=== PATIENT | female | born 1955 | race Caucasian/White ===

== ENCOUNTER 2019-04-19 09:07 | Emergency (ER) | payer OTHER, SELFPAY ==
[2019-04-19 09:12] VITALS: BP 132/72; PULSE 86; RESP 20; TEMP 36.9; O2SAT 99
--- NOTE | 2019-04-19 09:32 | ED.URI ---
HPI - URI/Sore Throat General Chief Complaint: Upper Respiratory Infection Stated Complaint: BODY ACHES/COUGH/WEAK Time Seen by Provider: 04/19/19 09:25 Source: patient Mode of arrival: ambulatory Limitations: no limitations History of Present Illness HPI Narrative: Patient presents today with a 3-day history of body aches, dry cough, sore throat, chest wall pain with coughing episodes, and rhinorrhea. Denies fever, headache, nausea, vomiting, diarrhea. She has been taking ibuprofen occasionally for her symptoms. She is a non-smoker. Denies history of asthma or COPD. MD elicited complaint: cough and sore throat Related Data Home Medications Medication Instructions Recorded Confirmed Vitamin D2 04/19/19 conjugated estrogens [Premarin] 0.45 mg PO DAILY 04/19/19 04/19/19 doxycycline hyclate 20 mg PO DAILY 04/19/19 04/19/19 Allergies Allergy/AdvReac Type Severity Reaction Status Date / Time No Known Allergies Allergy Verified 04/19/19 09:21 Review of Systems Review of Systems: Narrative: CONSTITUTIONAL: Denies fever, chills, or sweats.+ EYES: Denies visual changes, redness, or discharge. ENT: Denies congestion, , or otalgia.+, Sore throat CARDIOVASCULAR: Denies chest pain, palpitations, or edema. RESPIRATORY: Denies dyspnea.+ Dry cough, chest wall pain GASTROINTESTINAL: Denies abdominal pain, nausea, vomiting, or diarrhea. GENITOURINARY: Denies dysuria or hematuria. SKIN: Denies rash, itching, or wounds. MUSCULOSKELETAL: Denies back pain, joint pain, or myalgia. NEUROLOGIC: Denies headache, numbness, tingling, or weakness. PSYCH: Denies depression or anxiety. PMFSH Social History Social History Smoking status: Never smoker Alcohol intake: never Comments At time of signature, I have reviewed and agree with nursing past medical, surgical, social and family history unless otherwise noted. Please see nursing chart for further information. There is no relevant family history pertinent to the presenting complaint Exam Narrative: Exam Narrative: GENERAL: Mildly ill-appearing, well-nourished, and in no acute distress. HEAD: Normocephalic, atraumatic. EYES: EOMI. No redness or drainage. Conjunctivae normal. ENT: Mucous membranes pink and moist. Nares clear. No rhinorrhea. TMs normal bilaterally. Throat normal. Uvula midline. NECK: Normal AROM. Supple. No lymphadenopathy. CHEST: No respiratory distress. Clear to auscultation. HEART: Regular rate and rhythm. No murmur appreciated. Normal peripheral pulses. EXTREMITIES: Normal range of motion. No edema. SKIN: Warm, dry, no rash. NEURO: No focal deficits. Alert and oriented x3. Gait steady. PSYCH: Normal affect. No signs of depression or anxiety. Course Vital Signs Vital signs: Vital Signs Temperature 98.4 F 04/19/19 09:12 Pulse Rate 86 04/19/19 09:12 Respiratory Rate 20 04/19/19 09:12 Blood Pressure 132/72 04/19/19 09:12 Pulse Oximetry 99 04/19/19 09:12 Temperature 98.4 F 04/19/19 09:12 Pulse Rate 86 04/19/19 09:12 Respiratory Rate 20 04/19/19 09:12 Blood Pressure 132/72 04/19/19 09:12 Pulse Oximetry 99 04/19/19 09:12 Reviewed. Pt has been instructed to follow up with her PCP regarding her elevated blood pressure today. MDM - URI/Sore Throat Differential Diagnosis Differential diagnosis: Likely upper respiratory infection, sinusitis, viral infection, bronchitis, pharyngitis and other (Influenza) Lab Data Attestation: I reviewed the patient's lab results. Labs: Influenza A Screen Negative Reference Range: Negative Influenza B Screen Negative Reference Range: Negative Critical Care Time Critical Care Time Critical Care Time: No Discharge Plan Discharge Clinical Impression: Upper respiratory infection Qualifiers: URI type: unspecified URI Qualified Code(s): J06.9 - Acute upper respiratory infection, unspecified Patient Disposition: Home, Self-Ca
== END 2019-04-19 09:58 | disposition home or self-care (01) ==
PROVIDERS: Emergency Provider Nurse Practitioner; PCP Obstetrics & Gynecology Gynecology
DX: J06.9 Acute upper respiratory infection, unspecified (principal)
CPT/HCPCS: 87804; 99213; G0463

== ENCOUNTER 2019-07-08 10:00 | Outpatient (RCR) | payer OTHER, SELFPAY ==
--- NOTE | 2019-06-08 11:53 | PTOPEVAL ---
PHYSICAL THERAPY EVALUATION AND PLAN OF CARE Thank you for referring Lina Avlarez to [facility]. Lina will participate in physical therapy 2x/week for 4 weeks. Please review, sign, date and return this plan of care ANDRES. I agree with and certify that the following plan of care is medically necessary. Referring Physician Date Attending Provider: David Quinonez MD Evaluation Diagnosis low back pain Onset 1month ago Cause gradual onset; insidious Subjective Information Lina is here today with c/o Query Text:As Reported By Patient/ low back pain that is acute Family on chronic. Her previous back pain was so long ago and she has a difficult time recalling how she managed the pain before. Possibly with medication and stretching. Reports that her back is aggravated by bending over, lifting, carrying. Rest and sitting helps to relax the low back region. 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 Prior Level of Function Activity Level (Last 3 Months) Occupation housekeeping at hospital Hand Dominance Right Right Spine, Lumbar Reported Pain Level 5 Pain Description Aching Pain Frequency Acute,Intermittent Lowest Pain Intensity 3 Greatest Pain Intensity 7 Pain Aggravating Factors Bending,Lifting,Stair Climbing Pain Behaviors None Pain Relief Interventions Used By Medication Patient Interventions Used By Clinicians Exercise,Joint Mobilization Pain Score Pain Score 5: Self Report Cervical and Lumbar ROM Lumbar ROM Lumbar Flexion (0-90) 30 Query Text:Active in Degrees Lumbar Flexion Active Ankle Query Text:Hands to: Lumbar Extension (0-40) 10 Query Text:Active in Degrees Lateral Rotation Right (0-45) 20 Query Text:Active in Degrees Lateral Rotation Left (0-45) 15 Query Text:Active in Degrees Lumbar Comments abberent movement and markie's sign during lumbar flexion Cervical and Lumbar Musc
--- NOTE | 2019-07-08 10:28 | PTOPEVAL ---
PHYSICAL THERAPY DISCHARGE NOTE Thank you for referring Lina Alvarez to [facility]. Lina is independent in [facility]. I recommend discharge based on findings below. Please review, sign, date and return this plan of care ANDRES. I agree with and certify that the following plan of care is medically necessary. Referring Physician Date Attending Provider: David Quinonez MD Discharge Problem Diagnosis low back pain Subjective Information Lina reports today that Query Text:As Reported By Patient/ overall she is much improved Family in pain symptoms. There are some days that she has more discomfort. Self Report Pain Assessment Right Spine, Lumbar Reported Pain Level 0 Pain Description Aching Interventions Used By Clinicians Exercise Pain Score Pain Score 0: Self Report Lumbar ROM Lumbar Flexion (0-90) 55 Query Text:Active in Degrees Lumbar Flexion Active Floor Query Text:Hands to: Lumbar Extension (0-40) 15 Query Text:Active in Degrees Lateral Rotation Right (0-45) 35 Query Text:Active in Degrees Lateral Rotation Left (0-45) 35 Query Text:Active in Degrees Hip Strength Right Hip Flexion Strength 5 Normal Hip Extension Strength 3+ Fair + Hip Abduction Strength 4 Good Left Hip Flexion Strength 5 Normal Hip Extension Strength 4- Good - Hip Abduction Strength 4 Good Knee Strength Bilateral Knee Flexion Strength 5 Normal Knee Extension Strength 5 Normal PT Clinical Summary Lina has participated in physical therapy for 4 weeks for acute low back pain. She demonstrates today a significant improvement in ROM and strength and flexibility. She reports today that symptoms are manageable. I recommended continuing her exercises at home for another 3-4 weeks and to use the exercises as a tool for if symptoms start to return. I recommend discharge from PT at this time. Patient/Caregiver's Personal Goals for decrease pain Rehabilitation Other Potential Barriers to Goal decreased central processing Achievement Support Requirements For Optimal None [place] Patient/Caregiver Informed of Benefits/ Yes
== END 2019-07-08 11:31 | disposition home or self-care (01) ==
LOC: ANHPT 10:00
PROVIDERS: PCP Obstetrics & Gynecology Gynecology; Visit Provider Orthopaedic Surgery
DX: M54.5 Low back pain (principal); M79.18 Myalgia, other site
CPT/HCPCS: 97110; 97140; 97161

== ENCOUNTER → 2020-02-07 14:44 | Outpatient (CLI) | payer OTHER, SELFPAY ==
--- NOTE | ~2020-02-07 | MM_ITS ---
EXAMINATION: MM screening yumi BI w janessa HISTORY: Screening TECHNIQUE: Craniocaudal and mediolateral oblique 3-D tomosynthesis images were obtained and synthetic 2-D images were generated. CAD analysis was submitted and interpreted. COMPARISON: Comparison to multiple prior studies sequentially, with oldest reviewed study dated 10/2016. BREAST PARENCHYMAL COMPOSITION: The breasts are heterogeneously dense, which may obscure small masses . FINDINGS: There is possible architectural distortion in the upper aspect of the right breast on MLO v iew. The left breast is stable without evidence for malignancy. There are benign bilateral breast arthur cifications. IMPRESSION: 1. Possible architectural distortion upper aspect of the right breast. 2. Additional mammographic views and possible breast ultrasound are recommended. BI-RADS Category 0: Incomplete: Needs additional imaging evaluation. Reviewed, dictated and finalized at location A. CISE INSTRUCTOR IMPRESSION: 1. Possible architectural distortion upper aspect of the right breast. 2. Additional mammographic views and possible breast ultrasound are recommended . BI-RADS Category 0: Incomplete: Needs additional imaging evaluation.
== END ==
PROVIDERS: Visit Provider Obstetrics & Gynecology Gynecology
DX: Z12.31 Encounter for screening mammogram for malignant neoplasm of breast (principal); R92.8 Other abnormal and inconclusive findings on diagnostic imaging of breast
CPT/HCPCS: 77063; 77067

== ENCOUNTER → 2020-03-06 09:33 | Outpatient (CLI) | payer OTHER, SELFPAY ==
--- NOTE | ~2020-03-06 | MMUS_ITS ---
EXAMINATION: MM diagnostic mammo unilat RT, US breast RT limited HISTORY: Follow-up right breast asymmetry/architectural distortion TECHNIQUE: Additional 3-D tomosynthesis images of the right breast were performed and synthetic 2-D i mages were generated. CAD analysis was submitted and interpreted. High resolution right breast ultras ound was performed. COMPARISON: 02/07/2020 BREAST PARENCHYMAL COMPOSITION: The breasts are heterogenously dense, which may obscure small masses FINDINGS: MAMMOGRAPHIC FINDINGS: No discrete mass or architectural distortion is identified. There are no suspicious calcifications. ULTRASOUND: Limited right breast ultrasound: At 11:00, 6 cm from the nipple, there is an oval circumscribed hypoe choic mass measuring 4 mm, likely benign. No internal vascularity or posterior features. IMPRESSION: 1. Probable benign 4 mm right breast mass at 11:00, 6 cm from the nipple. 2. Recommend 6 month follow-up diagnostic right mammogram and ultrasound BI-RADS category 3, probably benign findings. Reviewed, dictated and finalized at location A. DEVELOPER IMPRESSION: 1. Probable benign 4 mm right breast mass at 11:00, 6 cm from the nipple. 2. Recommend 6 month follow-up diagnostic right mammogram and ultrasound BI-RADS category 3, probably benign findings.
== END ==
PROVIDERS: Visit Provider Obstetrics & Gynecology Gynecology
DX: R92.8 Other abnormal and inconclusive findings on diagnostic imaging of breast (principal)
CPT/HCPCS: 76642; 77065

== ENCOUNTER → 2020-09-04 08:42 | Outpatient (CLI) | payer OTHER, SELFPAY ==
--- NOTE | ~2020-09-04 | MMUS_ITS ---
EXAMINATION: MM diagnostic yumi RT w janessa, US breast RT limited HISTORY: Six-month follow-up of probably benign 4 mm right breast mass at 11:00 6 cm from nipple TECHNIQUE: ML, MLO and cc full field and spot 3-D tomosynthesis images of the right breast were perfo rmed and synthetic 2-D images were generated. CAD analysis was submitted and interpreted. High resolu tion upper outer and lower-outer quadrant right breast ultrasound was performed. COMPARISON: 03/06/2020 diagnostic right mammogram and limited right breast ultrasound examination 02/07/2020 bilateral digital screening mammogram BREAST PARENCHYMAL COMPOSITION: The breasts are heterogeneously dense, which may obscure small masses . FINDINGS: MAMMOGRAPHIC FINDINGS: 5 mm mass is suggested anteriorly in the outer mid right breast (craniocaudal Tomosynthesis image 34/ 76). ULTRASOUND: At 11:00 6 cm from the nipple there is an irregular hypoechoic approximately 2.4 x 3.7 mm area with p osterior shadowing and adjacent color flow vascularity. Ultrasound-guided biopsy is recommended. IMPRESSION: 1. Irregular hypoechoic shadowing 3.7 mm lesion at 11:00 6 cm from nipple 2. Ultrasound biopsy of right breast 11:00 lesion is recommended BI-RADS category 4, suspicious findings. Dr. Willett telephoned the report and ultrasound guided biopsy recommendation for the right breast 11:00 lesion on 09/04/[address] Leach's RN Jacquie. Reviewed, dictated and finalized at location A. IMPRESSION: 1. Irregular hypoechoic shadowing 3.7 mm lesion at 11:00 6 cm from nipple 2. Ultrasound biopsy of right breast 11:00 lesion is recommended BI-RADS category 4, suspicious findings. Dr. Willett telephoned the report and ultrasound guided biopsy recommendation for the right breast 11:00 lesion on 09/04/[address] Leach's RN Reza hanna.
== END ==
PROVIDERS: PCP Emergency Medicine; Visit Provider Obstetrics & Gynecology Gynecology
DX: N63.11 Unspecified lump in the right breast, upper outer quadrant (principal)
CPT/HCPCS: 76642; 77061; 77065; G0279

== ENCOUNTER 2020-09-27 09:56 | Outpatient (CLI) | payer OTHER, SELFPAY ==
--- NOTE | ~2020-09-27 | MMUS_ITS ---
EXAMINATION: US breast biopsy RT w image, MM post biopsy invasive RT DATE: 09/27/2020 11:33 (accession [id number]), 09/27/2020 11:29 (accession [id number]) INDICATION: Indeterminate mass in the upper outer quadrant of the right breast. Ultrasound-guided cor e biopsy is requested to evaluate for malignancy. TECHNIQUE AND FINDINGS: The risks and potential benefits of the procedure were discussed with the patient including bleeding, infection, and nondiagnostic specimen. A time out was performed. The skin of the right breast was pr epared and draped in usual sterile fashion. 1% lidocaine was used for superficial anesthesia. 1% lido westley with epinephrine was used for deep anesthesia. A vacuum-assisted biopsy gun needle was advanced through to the outer edge of the region of interest from an inferior approach utilizing sonographic guidance. A total of three tissue core samples were o btained through the lesion. A tissue marker clip was then placed at the biopsy site. Hemostasis was a chieved. A sterile bandage was applied. The patient tolerated procedure well and there was no evidence of immediate complication. The patient was given verbal instructions to return to the Emergency Department in the event of severe breast pa in or rapid breast enlargement. A two view right breast mammogram was obtained to document tissue mar ker clip placement. IMPRESSION: 1. Successful ultrasound-guided vacuum-assisted biopsy of right breast mass with tissue marker placem ent. Reviewed, dictated and finalized at location A. IMPRESSION: 1. Successful ultrasound-guided vacuum-assisted biopsy of right breast mass wit h tissue marker placement.
== END 2020-09-27 09:57 | disposition home or self-care (01) ==
LOC: ANHIMG 10:01
PROVIDERS: PCP Emergency Medicine; Visit Provider Surgery
DX: R92.8 Other abnormal and inconclusive findings on diagnostic imaging of breast (principal)
CPT/HCPCS: 19083; 88305; A4648

== ENCOUNTER → 2021-02-19 09:49 | Outpatient (CLI) | payer OTHER, SELFPAY ==
--- NOTE | ~2021-02-19 | MM_ITS ---
EXAMINATION: MM screening yumi BI w janessa HISTORY: Screening TECHNIQUE: Craniocaudal and mediolateral oblique 3-D tomosynthesis images were obtained and synthetic 2-D images were generated. CAD analysis was submitted and interpreted. COMPARISON: Comparison to multiple prior studies sequentially, with oldest reviewed study dated 10/09. BREAST PARENCHYMAL COMPOSITION: Breast composed of scattered areas of fibroglandular density FINDINGS: There is no evidence of suspicious mass, calcification, or architectural distortion to sugg est malignancy in either breast. There has been no suspicious interval change. IMPRESSION: 1. No mammographic evidence of malignancy. 2. Recommend routine screening mammography in one year. BI-RADS Category 1: Negative Reviewed, dictated and finalized at location A. ANTY CLERK
== END ==
PROVIDERS: Visit Provider Nurse Practitioner
DX: Z12.31 Encounter for screening mammogram for malignant neoplasm of breast (principal)
CPT/HCPCS: 77063; 77067

== ENCOUNTER → 2021-06-15 00:12 | Outpatient (CLI) | payer OTHER, SELFPAY ==
[2021-06-15 11:59] LABS: Influenza A QL RT-PCR Negative (Negative); Influenza B QL RT-PCR Negative (Negative); SARS-CoV-2 RNA PCR Negative
== END ==
PROVIDERS: PCP Emergency Medicine; Visit Provider Emergency Medicine
DX: R05.9 Cough, unspecified (principal); R06.7 Sneezing; R23.2 Flushing; R52 Pain, unspecified; Z20.822 Contact with and (suspected) exposure to COVID-19
CPT/HCPCS: 87502; C9803; U0003; U0005

== ENCOUNTER 2021-06-18 12:03 | Outpatient (CLI) | payer OTHER, SELFPAY ==
--- NOTE | ~2021-06-18 | XR_ITS ---
EXAMINATION: XR chest 2V 06/18/2021 12:27 INDICATION: Shortness of breath PROCEDURE: Two-view chest COMPARISON: 01/19/2008 FINDINGS: The lungs are clear. The cardiomediastinal silhouette is within normal limits. There are no pleural effusions. There is no pneumothorax suspected. IMPRESSION: 1: NO ACUTE CARDIOPULMONARY DISEASE. Reviewed, dictated and finalized at location A.
== END 2021-06-18 12:04 | disposition home or self-care (01) ==
LOC: ANHIMG 12:07
PROVIDERS: PCP Emergency Medicine; Visit Provider Emergency Medicine
DX: R06.02 Shortness of breath (principal)
CPT/HCPCS: 71046

== ENCOUNTER 2022-04-09 08:51 | Outpatient (CLI) | payer OTHER, SELFPAY ==
--- NOTE | ~2022-04-09 | NM_ITS ---
EXAMINATION: NM yvette stress w perfusion DATE: 04/09/2022 11:39 PIPE STRAIGHTENER INDICATION: Fatigue. TECHNIQUE: Rest images were obtained following intravenous administration of 9.8 mCi Tc99m tetrofosmi n (Myoview). The patient was infused intravenously with Lexiscan (regadenoson). Then, 30.1 mCi Tc99m tetrofosmin (Myoview) was administered intravenously, and stress images were obtained. Data was recon structed into short axis and horizontal and vertical long axis SPECT images. Gated SPECT images were also obtained. COMPARISON: None. FINDINGS: There is no definite reversible or fixed perfusion abnormality to suggest ischemia or infar ction. There is no segmental wall motion abnormality. Left ventricular ejection fraction measures 7 6%. IMPRESSION: 1. No definite ischemia or infarct. 2. Normal left ventricular ejection fraction measuring 76%. Reviewed, dictated and finalized at location B. STRAIGHTENER
--- NOTE | 2022-04-09 09:41 | EST_ITS ---
Patient Info Name: Lina Alvarez Age: 66 years : 1955 Gender: Female Ht: 63 in Wt: 160 lbs BSA: 1.82 m2 HR: 58 bpm BP: 179 / 108 mmHg Heart Rhythm: Sinus Rhythm Exam Date: 04/09/2022 10:01 AM Exam Location: [facility] Stress Patient Status: Outpatient Admit Date: 04/09/2022 Staff Ordering Physician: Dawood Kraus MD Attending Provider: Dawood Kraus MD Exercise Technologist: Hortensia Barnard CT Exercise Physician: Emmanuel France DO Exam Type: CA stress yvette w NM Study Info Indications R06.02 - Shortness of breath R53.83 - Other fatigue A regadenoson stress test was performed. Summary 1. 1. Negative lexiscan stress test for ischemic ST changes by ECG criteria. 2. 2. Baseline hypertension. 3. 3. Baseline atrial tachycardia changes to Sinus rhythm prior to stress testing. 4. 4. Nuclear scan to follow and will be reported separately. Please correlate with it. 5. 5. Patient informe of the above results. Protocol: Lexiscan Stress ECG Details Stage: REST Duration (min): 3 min : 52 sec HR (bpm): 86 SBP (mmHg): 201 DBP (mmHg): 117 Stage: REST Duration (min): 9 min : 39 sec HR (bpm): 60 SBP (mmHg): 183 DBP (mmHg): 106 Stage: STAGE 1 Duration (min): 1 min : 0 sec HR (bpm): 87 SBP (mmHg): 183 DBP (mmHg): 106 Stage: RECOVERY Duration (min): 1 min : 0 sec HR (bpm): 83 SBP (mmHg): 174 DBP (mmHg): 89 Stage: RECOVERY Duration (min): 2 min : 0 sec HR (bpm): 79 SBP (mmHg): 174 DBP (mmHg): 89 Stage: RECOVERY Duration (min): 3 min : 0 sec HR (bpm): 74 SBP (mmHg): 157 DBP (mmHg): 97 Stage: RECOVERY Duration (min): 3 min : 32 sec HR (bpm): 69 SBP (mmHg): 157 DBP (mmHg): 97 Rest HR: 60 bpm Peak HR: 88 bpm Rest Sys BP: 183 mmHg Peak Sys BP: 174 mmHg Max Pred HR: 156 bpm % Max Pred HR: 56 % Target HR: 133 bpm Max RPP: 15,312 bpm*mmHg Termination Reason: Completed protocol Cardiac Symptoms: Shortness of breath Total Time: 1 min : 0 sec Rest Ziegler BP: 106 mmHg Peak Ziegler BP: 89 mmHg Total Dose: 0.4 mg Resting ECG Baseline atrial tachycardia changes to sinus rhythm. Stress ECG No ST changes. Arrhythmias None from stress test. Report Signatures
== END 2022-04-09 08:52 | disposition home or self-care (01) ==
LOC: ANHCARD 08:54
PROVIDERS: PCP Emergency Medicine; Visit Provider Emergency Medicine
DX: R07.9 Chest pain, unspecified (principal); R53.83 Other fatigue
CPT/HCPCS: 78452; 93017; A9502; J2785

== ENCOUNTER → 2022-05-07 12:03 | Outpatient (CLI) | payer OTHER, SELFPAY ==
--- NOTE | ~2022-05-07 | DEXA_ITS ---
Bone Density Report Name: ARTI RIDER Age: 66 Sex: Female Ethnicity: White Date of : 1955 Indication: postmenopausal; screening for osteoporosis; height loss; hysterectomy; Referring Provider: ROXANA GEIGER Study: Bone densitometry was performed. Exam Date: May 07, 2022 Accession number: [id number] Bone Density: Region BMD T-score Z-score Classification AP Spine (L1-L4) 0.974 -0.7 1.1 Normal Femoral Neck (Left) 0.748 -0.9 0.6 Normal Total Hip (Left) 0.862 -0.7 0.6 Normal Femoral Neck (Right) 0.806 -0.4 1.1 Normal Total Hip (Right) 0.918 -0.2 1.0 Normal Total Hip Mean 0.890 -0.5 0.8 Normal World Health Organization criteria for BMD impression classify patients as: Normal (T-score at or above -1.0), Osteopenia (T-score between -1.0 and -2.5), or Osteoporosis (T-score at or below -2.5). 10-year Fracture Risk: FRAX not reported because: All T-scores for Spine Total, Hip Total, Femoral Neck at or above -1.0 Previous Exams: Region Exam Age BMD T-score BMD Change BMD Change Date g/cm2 vs Baseline vs Previous AP Spine(L1-L4) 05/07/2022 66 0.974 -0.7 0.012 -0.026* 09/29/2018 63 1.000 -0.4 0.038* 0.025* 09/17/2016 61 0.975 -0.7 0.013 -0.008 08/05/2013 58 0.983 -0.6 0.022 0.078* 07/03/2010 54 0.906 -1.3 -0.056* -0.056* 05/26/2008 52 0.962 -0.8 Total Hip(Left) 05/07/2022 66 0.862 -0.7 -0.025 -0.038* 09/29/2018 63 0.900 -0.3 0.013 -0.045* 09/17/2016 61 0.944 0.0 0.057* 0.020 08/05/2013 58 0.924 -0.1 0.037* 0.031* 07/03/2010 54 0.893 -0.4 0.006 0.006 05/26/2008 52 0.887 -0.5 Total Hip(Right) 05/07/2022 66 0.918 -0.2 0.024 -0.014 09/29/2018 63 0.932 -0.1 0.038* -0.051* 09/17/2016 61 0.983 0.3 0.090* 0.061* 08/05/2013 58 0.922 -0.2 0.029* 0.014 07/03/2010 54 0.908 -0.3 0.015 0.015 05/26/2008 52 0.893 -0.4 *Denotes significance at 95% confidence level, LSC for AP Spine = 0.022 g/cm2, LSC for Total Hip = 0.027 g/cm2 Clinical Information Provided by Patient: Has used the following medications: Vitamin D Has the following medical conditions: Hysterectomy Patient maximum height was 63 Menopause Age: 44 No regular weight bearing exercise Drinks
== END ==
PROVIDERS: PCP Emergency Medicine; Visit Provider Obstetrics & Gynecology Gynecology
DX: Z78.0 Asymptomatic menopausal state (principal)
CPT/HCPCS: 77080

== ENCOUNTER 2022-07-02 12:23 | Outpatient (CLI) | payer OTHER, SELFPAY ==
--- NOTE | 2022-07-03 15:33 | WPDPFTINT ---
PFT Procedure Performed PFT Procedure Performed Spirometry with Pre/Post Bronchodilator Plethysmography (Lung Vol) Diffusing Cap (DLCO) Flow Vol Loop PFT Interpretation Lung volumes were measured with the body plethysmography method. The borderline lung volumes could be due to mild restrictive respiratory disease. Spirometry showed diminished expiratory flow rates and a normal FEV1 to FVC ratio of 88% which could also be consistent with mild restrictive respiratory disease. Following administration of a bronchodilator there was no significant increase in expiratory flow rates. Lung diffusion capacity is normal at 75% predicted. The flow volume loop is unremarkable. Impression: Possible borderline restrictive respiratory disease. Lung diffusion capacity within the normal range.
--- NOTE | 2022-07-03 15:35 | WPDSIXMINUTE ---
Six Minute Walk Procedure Procedure Performed Pulmonary Stress Test (6 min walk) Six Minute Walk Six Minute Walk: This 6 minute walk test was carried out with the patient breathing ambient air. The pre walk baseline oxyhemoglobin saturation was 95%. The patient walked 243 m with no stops during testing. During the walk the oxyhemoglobin saturation remained greater than 96%. The perceived dyspnea on the Christopher scale was 2 at baseline and remained unchanged at the end of testing. Impression: No evidence of oxyhemoglobin desaturation on this testing.
== END 2022-07-02 12:24 | disposition home or self-care (01) ==
LOC: ANHPFT 12:25
PROVIDERS: Visit Provider Physician Assistant
DX: R06.02 Shortness of breath (principal)
CPT/HCPCS: 94060; 94618; 94726; 94729

== ENCOUNTER 2022-07-04 06:22 | Emergency (ER) | payer OTHER, SELFPAY ==
[2022-07-04] VITALS (9 sets, daily range): BP systolic 100–180; BP diastolic 63–92; PULSE 56–76; RESP 13–22; TEMP 36.5; O2SAT 98–100
--- NOTE | ~2022-07-04 | US_ITS ---
US right upper quadrant INDICATION: Epigastric pain PROCEDURE: Realtime right upper abdominal ultrasound. COMPARISON: No prior studies for comparison. FINDINGS: Study limited due to recent meal. The pancreas is normal without focal mass or pancreatic d uctal dilation. Liver echotexture is normal without focal mass or intrahepatic biliary dilatation. There is normal directional flow in the portal vein. Gallbladder is contracted limiting evaluation fo r stones or gallbladder wall thickening. The gallbladder is normal without stones, gallbladder wall thickening or pericholecystic fluid. Comm on bile duct measures 4 mm. No sonographic Alva's sign. IMPRESSION: 1: Gallbladder contraction limits evaluation for stones or gallbladder wall thickening. 2: Otherwise, unremarkable limited abdominal ultrasound. Reviewed, dictated and finalized at location B. IMPRESSION: 1: Gallbladder contraction limits evaluation for stones or gallbladder wall thi ckening. 2: Otherwise, unremarkable limited abdominal ultrasound.
--- NOTE | ~2022-07-04 | XR_ITS ---
EXAMINATION: XR chest 2V DATE: 07/04/2022 06:47 INDICATION: Chest pain and lightheadedness TECHNIQUE: PA and lateral views of the chest are obtained. COMPARISON: 06/18/2021 FINDINGS: The lungs are free of acute opacities. No pleural effusion or pneumothorax. The cardiomedia stinal silhouette is normal. There is mild thoracic spondylosis. IMPRESSION: 1. No acute cardiopulmonary abnormality. Reviewed, dictated and finalized at location A.
--- NOTE | 2022-07-04 06:28 | ECG_ITS ---
Measurements Intervals [place] Rate: 68 P: 28 CO: 156 QRS: 6 QRSD: 78 T: 23 QT: 382 QTc: 408 Interpretive Statements SINUS RHYTHM DELAYED PRECORDIAL R/S TRANSITION VOLTAGE CRITERIA FOR LVH BASELINE ARTIFACT- I, II, III, AVR, AVL, AVF BORDERLINE ECG NO PREVIOUS ECG AVAILABLE FOR COMPARISON Electronically Signed On 07-04-2022 6:41:57 CDT by Emmanuel France D.O.
[2022-07-04 06:38] LABS: Basophils Percent Auto 0.6 % (0.2-1.2); Eosinophils Absolute Auto 0.1 K/mm3 (0-0.3); Hematocrit 43.7 % (37.0-47.0); Hemoglobin 14.2 g/dL (12.0-15.0); Immature Granulocyte Absolute 0.03 K/mm3 (0.00-0.031); Immature Granulocyte Percent A 0.4 % (0-0.5); Lymphocytes Absolute Auto 2.12 K/mm3 (0.9-3.2); Lymphocytes Percent Auto 30.5 % (18.3-44.2); Mean Corpuscular HGB Conc 32.5 g/dl (32-36); Mean Corpuscular Volume 89.4 fl (80-100); Mean Platelet Volume 9.6 fl (7.4-10.4); Monocytes Absolute Auto 0.6 K/mm3 (0.1-0.6); Monocytes Percent Auto 8.2 % (2.6-8.5); Neutrophils Percent Auto 58.3 % (45.5-73.1); Platelet Count Result 310 k/mm3 (150-375); Red Blood Count 4.89 M/mm3 (4.2-5.4); Red Cell Distribution Width 13.8 % (11.5-14.5); White Blood Count 6.9 K/mm3 (4.5-10.0)
[2022-07-04 06:48] LABS: INR 0.9; Prothrombin Time 12.5 Seconds (11.1-14.7)
[2022-07-04] MEDS: ASPIRIN 81 MG CHEWABLE TABLET 324 MG PO (06:48)
[2022-07-04 06:49] LABS: Alanine Aminotransferase 23 U/L (6-35); Albumin Level 4.5 g/dL (3.5-5.1); Alkaline Phosphatase 100 U/L (38-126); Anion Gap 5 mmol/L (8-16); Aspartate Amino Transferase 25 U/L (14-36); Bilirubin,Total 0.4 mg/dL (0.2-1.3); Blood Urea Nitrogen 22 mg/dL (7-17); Carbon Dioxide 29 mmol/L (22-30); Chloride 105 mmol/L (98-107); Estimated CRCL calculation 92 ml/min; Estimated Glomerular Filt Rate > 60; Glucose 101 mg/dL (65-110); Lipase 123 U/L (23-300); Partial Thromboplastin Time 29.7 SECONDS (22.3-36.8); Potassium 4.1 mmol/L (3.4-5.0); Sodium 139 mmol/L (137-145)
[2022-07-04 07:01] LABS: Troponin I < 0.012 ng/mL (0.000-0.034)
--- NOTE | 2022-07-04 08:00 | ED.CHESTPAIN ---
HPI - Chest Pain General Chief Complaint: Chest Pain Stated Complaint: epigastric pain Time Seen by Provider: 07/04/22 06:40 History of Present Illness HPI narrative: Patient is a 66-year-old female who presents ER with epigastric pain. Sudden onset this morning while working. No radiation to the shoulder or back. Sharp pain in waves for about 15 minutes. No identifiable aggravating factors nor alleviating factors. No history of cardiac disease. No association with eating or drinking. Denies fevers or chills or sweats. No pain with deep breaths. Related Data Home Medications Medication Instructions Recorded Confirmed doxycycline hyclate 20 mg tablet See Rx Instructions .Route .COMPLEX 07/04/20 06/04/22 ergocalciferol (vitamin D2) 1,250 See Rx Instructions .Route .COMPLEX 07/04/20 06/04/22 mcg (50,000 unit) capsule (Vitamin D2) Allergies Allergy/AdvReac Type Severity Reaction Status Date / Time No Known Allergies Allergy Verified 07/04/22 06:41 Review of Systems Review of Systems: All systems reviewed & are unremarkable except as noted in HPI and below Constitutional: Constitutional: Denies chills, Denies fatigue and Denies fever(s) ENT: Denies nasal congestion and Denies sore throat Cardiovascular: Cardiovascular: Denies chest pain, Denies rapid heart rate and Denies radiating jaw, neck or arm pain Respiratory: Respiratory: Denies cough and Denies dyspnea Gastrointestinal: Gastrointestinal: Reports abdominal pain, Denies diarrhea, Denies nausea and Denies vomiting Musculoskeletal: Musculoskeletal: Denies back pain PMFSH Past Medical History Medical History Acute pain of left knee Aftercare following surgery Body mass index [BMI] 29.0-29.9, adult (06/05/17) Chicken pox Complex tear of lateral meniscus of left knee as current injury Crushing injury of left knee, initial encounter Effusion of knee joint, left High cholesterol Pneumonia Tear of medial meniscus of left knee Surgical History Surgical History History of hysterectomy (~2007) 2007 History of knee surgery (~2018) Family History Family History Father Dementia Mother Carcinoma of colon Acute myocardial infarction Osteoporosis Other Diabetes mellitus Heart disease Hypertension Lung cancer Social History Social History Social History: Patient does not drink caffeine. Smoking status: Never smoker Alcohol intake: never Substance use: never Occupation/Education: occupation Additional occupation/education comments: [employer] Gender identity (if verbalized by the patient): Female Exam Narrative: GENERAL: Well-appearing, well-nourished, and in no acute distress. HEAD: Normocephalic, atraumatic. ENT: Mucous membranes moist. CHEST: Clear to auscultation. No respiratory distress. HEART: Regular rate and rhythm. Normal peripheral pulses. ABDOMEN: Soft, nontender, nondistended. EXTREMITIES: Normal range of motion. No edema. SKIN: Warm, dry, no rash. NEURO: Alert and oriented x3. PSYCH: Normal mood and affect. Course Course Emergency Course: Patient resting comfortably. Symptoms improved with GI cocktail. Troponin negative x2. [place] appropriate for discharge home. Vital Signs Vital signs: Vital Signs Pulse Rate 68 07/04/22 06:32 Temperature 97.7 F 07/04/22 06:33 Pulse Rate 56 L 07/04/22 10:38 Respiratory Rate 18 07/04/22 10:38 Blood Pressure 157/77 H 07/04/22 10:38 Pulse Oximetry 99 07/04/22 10:38 MDM - Chest Pain Lab Data 07/04/22 06:30 07/04/22 06:30 Labs: Lab Results 07/04/22 07/04/22 Range/Units 06:30 09:58 WBC 6.9 (4.5-10.0) K/mm3 RBC 4.89 (4.2-5.4) M
[2022-07-04] MEDS: BELLADONNA ALK/PHENOB ELIX 10 ML, MAG HYDROX/ALUMINUM HYD/SIMETH 30 ML, LIDOCAINE HCL 2... PO (09:09)
[2022-07-04 10:30] LABS: Troponin I < 0.012 ng/mL (0.000-0.034)
== END 2022-07-04 11:17 | disposition home or self-care (01) ==
PROVIDERS: Emergency Medicine; Emergency Provider Emergency Medicine; PCP Emergency Medicine
DX: R10.13 Epigastric pain (principal); E78.00 Pure hypercholesterolemia, unspecified; Z87.01 Personal history of pneumonia (recurrent); Z90.710 Acquired absence of both cervix and uterus; R94.31 Abnormal electrocardiogram [ECG] [EKG]
CPT/HCPCS: 36415; 71046; 76705; 80053; 83690; 84484; 85025; 85610; 85730; 93005; 99284; A9270

== ENCOUNTER 2022-07-06 09:50 | Emergency (ER) | payer OTHER, SELFPAY ==
[2022-07-06] VITALS (18 sets, daily range): BP systolic 138–195; BP diastolic 64–122; PULSE 54–84; RESP 11–27; TEMP 36.6; O2SAT 97–100
--- NOTE | ~2022-07-06 | XR_ITS ---
EXAMINATION: XR chest 2V DATE: 07/06/2022 10:27 INDICATION: Chest pain. TECHNIQUE: Frontal and lateral views of the chest were obtained. COMPARISON: Chest 2 views 07/04/2022 FINDINGS: The chest demonstrates clear lungs without pneumonia, pleural effusion, or pneumothorax. Th e heart size is normal. IMPRESSION: 1. No acute cardiopulmonary disease. Reviewed, dictated and finalized at location A.
--- NOTE | ~2022-07-06 | CT_ITS ---
EXAMINATION: CT brain wo con DATE: 07/06/2022 12:18 INDICATION: Dizziness. TECHNIQUE: Computed tomography (CT) of the head was performed without intravenous contrast. The mA wa s adjusted according to patient size. Iterative reconstruction technique was employed. The dose-lengt h product was 605.33 mGy-cm. COMPARISON: Head CT 06/14/2009 FINDINGS: There is no intracranial hemorrhage, acute infarction, or abnormal intracranial mass lesion . The ventricles are normal in size. The orbits are normal. The paranasal sinuses are clear. The mast oid air cells are normal. IMPRESSION: 1. Normal brain. Reviewed, dictated and finalized at location A. IMPRESSION: 1. Normal brain.
--- NOTE | 2022-07-06 09:54 | ECG_ITS ---
Measurements Intervals Dawn Rate: 59 P: 19 ND: 166 QRS: 2 QRSD: 75 T: 22 QT: 400 QTc: 398 Interpretive Statements SINUS BRADYCARDIA WITH SINUS ARRHYTHMIA LEFT VENTRICULAR HYPERTROPHY BASELINE ARTIFACT- I, II, III, AVR, AVL, AVF, V1 BORDERLINE ECG COMPARED TO ECG 07/04/2022 06:32:41 SINUS BRADYCARDIA NOW PRESENT SINUS ARRHYTHMIA NOW PRESENT Electronically Signed On 07-06-2022 13:46:54 CDT by Emmanuel France D.O.
[2022-07-06] MEDS: ASPIRIN 81 MG CHEWABLE TABLET 324 MG PO (10:01)
[2022-07-06 10:13] LABS: Basophils Percent Auto 0.7 % (0.2-1.2); Eosinophils Absolute Auto 0.1 K/mm3 (0-0.3); Eosinophils Percent Auto 2.3 % (0-4.4); Hematocrit 43.3 % (37.0-47.0); Hemoglobin 14.3 g/dL (12.0-15.0); Immature Granulocyte Absolute 0.02 K/mm3 (0.00-0.031); Immature Granulocyte Percent A 0.3 % (0-0.5); Lymphocytes Absolute Auto 1.91 K/mm3 (0.9-3.2); Lymphocytes Percent Auto 31.3 % (18.3-44.2); Mean Corpuscular Volume 87.8 fl (80-100); Mean Platelet Volume 9.7 fl (7.4-10.4); Monocytes Absolute Auto 0.4 K/mm3 (0.1-0.6); Monocytes Percent Auto 6.9 % (2.6-8.5); Neutrophils Absolute Auto 3.6 K/mm3 (1.3-6.7); Neutrophils Percent Auto 58.5 % (45.5-73.1); Platelet Count Result 269 k/mm3 (150-375); Red Blood Count 4.93 M/mm3 (4.2-5.4); White Blood Count 6.1 K/mm3 (4.5-10.0)
[2022-07-06 10:29] LABS: Alanine Aminotransferase 23 U/L (6-35); Albumin Level 4.2 g/dL (3.5-5.1); Alkaline Phosphatase 90 U/L (38-126); Anion Gap 5 mmol/L (8-16); Aspartate Amino Transferase 25 U/L (14-36); Bilirubin,Total 0.3 mg/dL (0.2-1.3); Blood Urea Nitrogen 16 mg/dL (7-17); Calcium 9.1 mg/dL (8.4-10.2); Carbon Dioxide 29 mmol/L (22-30); Chloride 105 mmol/L (98-107); Estimated CRCL calculation 90 ml/min; Estimated Glomerular Filt Rate > 60; Glucose 97 mg/dL (65-110); Lipase 105 U/L (23-300); Sodium 139 mmol/L (137-145)
--- NOTE | 2022-07-06 10:30 | ED.CHESTPAIN ---
HPI - Chest Pain General Chief Complaint: Chest Pain Stated Complaint: epigastric pain - here thursday Time Seen by Provider: 07/06/22 10:29 Source: patient and old records reviewed Mode of arrival: ambulatory Limitations: no limitations History of Present Illness HPI narrative: Patient is a 66-year-old female who presents to the ED with report of dizziness/lightheadedness. Patient reports she was seen in the ED on Thursday for epigastric pain/midsternal chest pain, pain improved with GI cocktail, 2 negative troponins and was discharged home with Pepcid. Patient reports this pain has improved, however now she reports having dizziness/lightheadedness. She states this began yesterday and persisted into today. Worse with movement, standing, turning head left or right. She has not passed out. Denies any headache, vision changes, focal weakness. Denies SOB, nausea, vomiting, cough or cold symptoms. Related Data Home Medications Medication Instructions Recorded Confirmed doxycycline hyclate 20 mg tablet See Rx Instructions .Route .COMPLEX 07/04/20 06/04/22 ergocalciferol (vitamin D2) 1,250 See Rx Instructions .Route .COMPLEX 07/04/20 06/04/22 mcg (50,000 unit) capsule (Vitamin D2) Allergies Allergy/AdvReac Type Severity Reaction Status Date / Time No Known Allergies Allergy Verified 07/06/22 09:58 Review of Systems Review of Systems: CONSTITUTIONAL: Denies fever, chills, or sweats. EYES: Denies visual changes. CARDIOVASCULAR: See HPI. RESPIRATORY: Denies cough or dyspnea. GASTROINTESTINAL: Denies abdominal pain, nausea, vomiting, or diarrhea. GENITOURINARY: Denies dysuria or hematuria. NEUROLOGIC: See HPI. All systems reviewed & are unremarkable except as noted in HPI and below [facility] Past Medical History Medical History Acute pain of left knee Aftercare following surgery Body mass index [BMI] 29.0-29.9, adult (06/05/17) Chicken pox Complex tear of lateral meniscus of left knee as current injury Crushing injury of left knee, initial encounter Effusion of knee joint, left High cholesterol Pneumonia Tear of medial meniscus of left knee Surgical History Surgical History History of hysterectomy (~2007) 2007 History of knee surgery (~2018) Family History Family History Father Dementia Mother Carcinoma of colon Acute myocardial infarction Osteoporosis Other Diabetes mellitus Heart disease Hypertension Lung cancer Social History Social History Social History: Patient does not drink caffeine. Smoking status: Never smoker Alcohol intake: never Substance use: never Occupation/Education: occupation Additional occupation/education comments: [employer] Gender identity (if verbalized by the patient): Female Exam Narrative: GENERAL: Appears older than stated age, non-toxic, in no acute distress. HEAD: Normocephalic, atraumatic. EYES: PERRLA/EOMI, conjunctiva clear, no nystagmus. ENT: TMs clear bilaterally, no erythema or bulging. No cerumen impaction. NECK: Supple. No adenopathy, no masses. No meningeal signs. RESPIRATORY: Airway patent, respirations nonlabored. Clear to auscultation bilaterally, no rales, rhonchi, wheezing. CARDIOVASCULAR: Regular rate and rhythm without murmurs, rubs, or gallops. Radial pulses 2+ and equal bilaterally. ABDOMINAL: Soft, no significant tenderness throughout abdomen, nondistended, no hepatosplenomegaly. Normoactive BS. MUSCULOSKELETAL: Moves all extremities. Strength/ROM intact without gross deformities. No chest wall tenderness to palpation. SKIN: Warm, dry, normal color. No rashes. NEURO: A&O X3. Speech clear. Cranial nerves II-XII grossly intact. Steady gait. No ataxic movements. No focal
[2022-07-06 10:33] LABS: INR 0.9; Prothrombin Time 12.7 Seconds (11.1-14.7)
[2022-07-06 10:34] LABS: Partial Thromboplastin Time 28.5 SECONDS (22.3-36.8)
[2022-07-06 10:39] LABS: Troponin I < 0.012 ng/mL (0.000-0.034)
[2022-07-06] MEDS: SODIUM CHLORIDE 0.9% IV 1,000 ML 999 ML IV CONT (12:00)
[2022-07-06] MEDS: MECLIZINE HCL 25 MG TABLET PO (12:27)
[2022-07-06 12:31] LABS: Influenza A QL RT-PCR Negative (Negative); Influenza B QL RT-PCR Negative (Negative); SARS-CoV-2 RNA PCR Negative (Negative)
[2022-07-06 13:39] LABS: Troponin I < 0.012 ng/mL (0.000-0.034)
[2022-07-06] MEDS: LOSARTAN POTASSIUM 25 MG TABLET PO (14:16)
== END 2022-07-06 15:13 | disposition home or self-care (01) ==
PROVIDERS: Emergency Medicine; Emergency Provider Physician Assistant; PCP Emergency Medicine
DX: R42 Dizziness and giddiness (principal); I10 Essential (primary) hypertension; K21.9 Gastro-esophageal reflux disease without esophagitis; Z20.822 Contact with and (suspected) exposure to COVID-19
CPT/HCPCS: 36415; 70450; 71046; 80053; 83690; 84484; 85025; 85610; 85730; 87636; 93005; 96360; 99284; A9270; J7030

== ENCOUNTER → 2022-09-20 09:34 | Outpatient (CLI) | payer OTHER, SELFPAY ==
--- NOTE | ~2022-09-20 | MM_ITS ---
EXAMINATION: MM screening yumi BI w janessa HISTORY: Screening TECHNIQUE: Craniocaudal and mediolateral oblique 3-D tomosynthesis images were obtained and synthetic 2-D images were generated. CAD analysis was submitted and interpreted. COMPARISON: Comparison to multiple prior studies sequentially, with oldest reviewed study dated 11/05. BREAST PARENCHYMAL COMPOSITION: Breast composed of scattered areas of fibroglandular density FINDINGS: There is no evidence of suspicious mass, calcification, or architectural distortion to sugg est malignancy in either breast. There has been no suspicious interval change. IMPRESSION: 1. No mammographic evidence of malignancy. 2. Recommend routine screening mammography in one year. BI-RADS Category 1: Negative Reviewed, dictated and finalized at location A.
== END ==
PROVIDERS: PCP Obstetrics & Gynecology Gynecology; Visit Provider Obstetrics & Gynecology Gynecology
DX: Z12.31 Encounter for screening mammogram for malignant neoplasm of breast (principal)
CPT/HCPCS: 77063; 77067

== ENCOUNTER 2022-09-24 09:24 | Outpatient (CLI) | payer OTHER, SELFPAY ==
--- NOTE | ~2022-09-24 | CT_ITS ---
EXAMINATION: CT diagnostic chest wo con DATE: 09/24/2022 09:46 INDICATION: Restrictive airways disease and cough TECHNIQUE: Computed tomography (CT) of the chest was performed without intravenous contrast. The dose -length product (DLP) was 135.28 mGy-cm. Automated exposure control and iterative reconstruction tech nique were employed. COMPARISON: None FINDINGS: There are scattered small nodules of the lungs. The largest measures 3 mm in the left lower lobe. There is mild atelectasis of the lungs. The lungs are free of focal airspace opacities. No ple ural effusion or pneumothorax. No pathologically enlarged thoracic lymph nodes are identified. The he art size is normal. There is mild thoracic spondylosis. IMPRESSION: 1. No CT correlate for the patient's symptoms. Reviewed, dictated and finalized at location B.
== END 2022-09-24 09:25 | disposition home or self-care (01) ==
PROVIDERS: PCP Emergency Medicine; Referring Provider Obstetrics & Gynecology Gynecology; Visit Provider Physician Assistant
DX: J98.4 Other disorders of lung (principal); R05.9 Cough, unspecified
CPT/HCPCS: 71250

== ENCOUNTER 2022-12-22 08:55 | Outpatient (CLI) | payer OTHER, SELFPAY ==
--- NOTE | 2023-01-18 18:06 | WPDSLEEPSTUD ---
Sleep Study Date of Study: 12/22/22 Ordering Provider: RYLEE Reyna Interpreting Physician: Anahy Peacock MD Sleep Study Type: Polysomnogram Height: 1.6 m Weight: 73.482 kg Body Mass Index: 28.7 Neck Circumference (inches): 13.25 Lavinia: 10 Reason for Sleep Study Daytime hypersomnia *05/05/21 ? [facility] ? Overall AHI 3.8 with 1 minute spent below 85% saturation. Sleep History Lina Alvarez is a 67 year old female with history of dyslipidemia and GERD who underwent a sleep study for evaluation of daytime hypersomnia. She had a negative home sleep test in April 2021 with ongoing symptoms of daytime fatigue. She never awakens from sleep short of breath. She never awakens at night with heartburn, belching or cough. She never snores. She occasionally has trouble sleeping when she has a cold. She never suddenly wakes up gasping for breath during the night. She never has breathing problems at night. She occasionally sweats excessively at night. She never notices her heart pounding or beating irregularly during the night. She frequently falls asleep during the day. She frequently falls asleep involuntarily and she never falls asleep while driving. She never experiences loss of muscle tone with strong emotion. She occasionally has trouble at work because of sleepiness. She never feels paralyzed on waking or falling asleep. She never experiences vivid dreams upon waking or falling asleep. She does not feel afraid of going to sleep. She never has nightmares. She frequently recalls her dreams. She occasionally has thoughts racing through her mind. She never feels sad or depressed. She occasionally feels anxiety or worry about things. She never notices parts of her body jerk. She never kicks during the night. She never feels crawling or aching feelings in her legs. She never feels leg pain at night. She never grinds her teeth during sleep and never has morning jaw pain. She never feels bothered by pain during the day and is never awakened by pain during the night. She occasionally wakes up with pain in her neck, spine, or joints. Normal bedtime is around 6:30pm on the weekdays and same on the weekends, taking 10 minutes to fall asleep. She typically gets about 7 hours of sleep per night. Her wake up time is around 3am on the weekdays and 7am on the weekends. She does not typically wake up during the night but occasionally wakes up to go to the bathroom. She does not read or watch TV before falling asleep. She does not typically take naps in the afternoon or evening. Habits: Never tobacco smoker. No caffeine use. No alcohol or recreational substances. [facility] Past Medical History Medical History Acute pain of left knee Aftercare following surgery Body mass index [BMI] 29.0-29.9, adult (06/05/17) Chicken pox Complex tear of lateral meniscus of left knee as current injury Crushing injury of left knee, initial encounter Effusion of knee joint, left GERD (gastroesophageal reflux disease) High cholesterol Pneumonia Tear of medial meniscus of left knee Surgical History Surgical History History of hysterectomy (~2006) 2007 History of knee surgery (~2018) Family History Family History Father Dementia Mother Carcinoma of colon Acute myocardial infarction Osteoporosis Other Diabetes mellitus Heart disease Hypertension Lung cancer Social History Social History Social History: Patient does not drink caffeine. Smoking status: Never smoker Alcohol intake: never Substance use: never Substance use type: does not use Lack of Transportation: No Lack of Food: Never True Current Housing: I Have Housing Concerned About Future Housing: No Difficulty Paying Gas/Electric Bills: No Di
[2023-01-18 18:13] VITALS: BMI 28.7
== END 2022-12-23 06:18 | disposition home or self-care (01) ==
LOC: ANHCSM 08:55
PROVIDERS: PCP Emergency Medicine; Visit Provider Physician Assistant
DX: G47.33 Obstructive sleep apnea (adult) (pediatric) (principal); G47.10 Hypersomnia, unspecified
CPT/HCPCS: 95810

== ENCOUNTER 2023-11-04 11:20 | Outpatient (CLI) | payer OTHER, SELFPAY ==
--- NOTE | ~2023-11-04 | MM_ITS ---
EXAMINATION: MM screening yumi BI w janessa HISTORY: Screening TECHNIQUE: Craniocaudal and mediolateral oblique 3-D tomosynthesis images were obtained and synthetic 2-D images were generated. CAD analysis was submitted and interpreted. COMPARISON: Comparison to multiple prior studies sequentially, with oldest reviewed study dated 01/10. BREAST PARENCHYMAL COMPOSITION: Not dense: There are scattered areas of fibroglandular density. FINDINGS: There is no evidence of suspicious mass, calcification, or architectural distortion to sugg est malignancy in either breast. There has been no suspicious interval change. IMPRESSION: 1. No mammographic evidence of malignancy. 2. Recommend routine screening mammography in one year. BI-RADS Category 1: Negative Reviewed, dictated and finalized at location B.
== END 2023-11-04 11:21 | disposition home or self-care (01) ==
LOC: MICIMG 11:21
PROVIDERS: PCP Obstetrics & Gynecology Gynecology; Visit Provider Emergency Medicine
DX: Z12.31 Encounter for screening mammogram for malignant neoplasm of breast (principal)
CPT/HCPCS: 77063; 77067

== ENCOUNTER 2024-03-08 09:02 | Emergency (ER) | payer OTHER, SELFPAY ==
[2024-03-08 09:12] VITALS: BP 118/81; PULSE 92; RESP 16; TEMP 36.6; O2SAT 100
--- NOTE | 2024-03-08 09:19 | ED.URI ---
HPI - URI/Sore Throat General Chief Complaint: Upper Respiratory Infection Stated Complaint: Chest Congestion/Cough Time Seen by Provider: 03/08/24 09:40 Source: patient and RN notes reviewed Mode of arrival: ambulatory Limitations: no limitations History of Present Illness HPI Narrative: 68-year-old female presents with concern for cough, nasal congestion that started 5 days ago. She reports she has been taking cold medicine without relief. MD elicited complaint: cough Related Data Home Medications ?Medication ?Instructions ?Recorded ?Confirmed ?Last Taken ?Type doxycycline hyclate 20 mg tablet See Rx Instructions .Route .COMPLEX 07/04/20 02/29/24 Unknown History Allergies Allergy/AdvReac Type Severity Reaction Status Date / Time No Known Allergies Allergy Verified 03/08/24 09:17 Review of Systems Review of Systems: CONSTITUTIONAL: Reports malaise, chills, sweats EYES: Denies visual changes, redness, or discharge. ENT: Reports rhinorrhea, congestion. Denies sinus pain, otalgia and sore throat. CARDIOVASCULAR: Denies chest pain, palpitations, or edema. RESPIRATORY: Reports cough. Denies dyspnea. GASTROINTESTINAL: Denies abdominal pain, nausea, vomiting, diarrhea SKIN: Denies rash or itching. MUSCULOSKELETAL: Reports myalgia. NEUROLOGIC: Reports headache. All systems reviewed & are unremarkable except as noted in HPI and below PMFSH Past Medical History Medical History GERD (gastroesophageal reflux disease) Chest pain Chest pain Upper respiratory disease SOB (shortness of breath) Acute pain of left knee Aftercare following surgery Body mass index [BMI] 29.0-29.9, adult (06/05/17) Complex tear of lateral meniscus of left knee as current injury Effusion of knee joint, left Crushing injury of left knee, initial encounter Tear of medial meniscus of left knee High cholesterol Pneumonia Chicken pox Surgical History Surgical History Status post hysterectomy History of hysterectomy (~2006) 2007 History of knee surgery (~2018) Family History Family History Father Dementia Mother Carcinoma of colon Acute myocardial infarction Osteoporosis Other Diabetes mellitus Heart disease Hypertension Lung cancer Social History Social History Social History: Patient does not drink caffeine. Smoking status: Never smoker Alcohol intake: never Substance use: never Substance use type: does not use Do You Feel Safe in your Home?: Yes Lack of Transportation: No Lack of Food: Never True Current Housing: I Have Housing Concerned About Future Housing: No Difficulty Paying Gas/Electric Bills: No Difficulty Paying for Meds: No Currently Unemployed: No Education: Grade School Difficulty w/ Childcare or Family Care: No Living arrangements: alone Occupation/Education: occupation Additional occupation/education comments: [employer] Gender identity (if verbalized by the patient): Female Comments At time of signature, agree with nursing past medical, surgical, social and family history. There is no relevant family history pertinent to the presenting complaint Exam Narrative: GENERAL: Nontoxic-appearing, well-nourished, and in no acute distress. HEAD: Normocephalic EYES: PERRLA, conjunctivae clear ENT: Nares clear. Mucous membranes moist. TM pearly hassan with dull light reflex bilaterally; no tragal tenderness. Oropharynx not erythematous without lesions. Tonsils not enlarged and without exudate, no drooling, no hoarseness, no trismus, uvula midline. NECK: Supple. No lymphadenopathy CHEST: Scattered expiratory wheeze, otherwise Clear to auscultation, breath sounds equal. No rhonchi, rales, or stridor. No respiratory distress, speaks in full sentences. HEART: Regular rate and rhythm. No murmur heard. SKIN: Warm, dry, no rash. NEURO: Alert and oriented x3. PSYCH: Normal mood and affect Course Course Emergency Course: Patient is aware of diagnosis, understands and agrees to treatment plan. Anticipatory guidance given. Patient agrees to follow-up as directed and is aware of reasons to seek care at the emergency department. Portions of this record may have been created with voice recognition software Level of Care: Express Care Visit Vital Signs Vital signs: Vital Signs Temperature 97.9 F 03/08/24 09:12 Pulse Rate 92 03/08/24 09:12 Respiratory Rate 16 03/08/24 09:12 Blood Pressure 118/81 03/08/24 09:12 Pulse Oximetry 100 03/08/24 09:12 Temperature 97.9 F 03/08/24 09:12 Pulse Rate 92 03/08/24 09:12 Respiratory Rate 16 03/08/24 09:12 Blood Pressure 118/81 03/08/24 09:12 Pulse Oximetry 100 03/08/24 09:12 Oxygen Delivery Room Air 03/08/24 09:20 Reviewed. MDM - URI/Sore Throat MDM Narrative Medical decision making narrative: Differential diagnosis considered: Mcginnis virus, strep pharyngitis, allergic rhinitis, upper respiratory tract infection, sinusitis, rhinosinusitis, nasopharyngitis. viral pharyngitis, otitis media, otitis externa, pneumonia, bronchitis, viral cough syndrome, viral syndrome, and influenza. Exam findings show no acute concerns or changes; patient is non-toxic appearing and is in no distress. Patient is appropriate for outpatient treatment and follow-up. Lab Data Attestation: I reviewed the patient's lab results. Labs: Lab Results 03/08/24 Range/Units 09:37 POC Influenza A Ag Negative (Negative) POC Influenza B Ag Negative (Negative) POC SARS CoV-2 Ag Positive (Negative) Critical Care Time Critical Care Time Critical Care Time: No Discharge Plan Discharge Clinical Impression: COVID Patient Disposition: Home, Self-Care Condition: Stable Instructions: How to Recover from COVID-19 at Home (ED) Additional Instructions: Your rapid COVID test is positive. COVID is a virus, antibiotics are not effective against viruses. Your body has to kill viruses. ? Stay home when you are sick, except to get medical care. ? Stay home until your symptoms are resolving and you haven't had a fever for 24 hours. ? If you are self isolating at home where others live, use a separate room and bathroom for sick household members (if possible). Clean any shared rooms as needed, to avoid transmitting the virus. ? Wash your hands often with soap and water for at least 20 seconds, especially after blowing your nose, coughing, or sneezing; going to the bathroom; and before eating or preparing food. ? If soap and water are not available, use an alcohol-based hand film painter with at least 60% alcohol. ? Have a supply of clean, disposable face masks. Everyone, no matter their COVID diagnosis, should wear face masks while in the home. - Over the counter medications such as Tylenol every 4 hours, ibuprofen every 6 hours (you can alternate these for maximum effect), Mucinex DM for cough, and psuedoephedrine (you must ask the pharmacist for this) can help relieve symptoms while your body fights off the virus. Watch for symptoms and learn when to seek emergency medical attention. If someone is showing any of these signs, seek emergency medical care immediately: ? Trouble breathing ? Persistent chest pain/pressure ? Confusion ? Inability to wake or stay awake ? Bluish lips or face Call 911 or call ahead to your local emergency room: Notify the service car operator that you are seeking care for someone who has or may have COVID Patient Language: Lithuanian Prescriptions: New albuterol sulfate 90 mcg/actuation HFA aerosol inhaler 2 puff INHALATION QID PRN (Reason: shortness of breath or wheezing) Qty: 8.5 0RF No Action doxycycline hyclate 20 mg tablet See Rx Instructions .ROUTE .COMPLEX Rx Instructions: Take 2 tablets po once daily; ergocalciferol (vitamin D2) 1,250 mcg (50,000 unit) capsule See Rx Instructions .ROUTE .COMPLEX Qty: 9 2RF Dose Instruction: TAKE 1 CAPSULE BY MOUTH THREE TIMES MONTHLY Rx Instructions: TAKE 1 CAPSULE BY MOUTH THREE TIMES MONTHLY Follow-up/Referrals: Dawood Kraus MD [Primary Care Provider] - Stand Alone Forms: Work/School Release IP Time of Disposition: 09:51
[2024-03-08 09:39] LABS: EDCOVIDSCREEN Positive (Negative); EDINFLUASCREEN Negative (Negative); EDINFLUBSCREEN Negative (Negative)
== END 2024-03-08 09:58 | disposition home or self-care (01) ==
PROVIDERS: Emergency Provider Nurse Practitioner; PCP Emergency Medicine
DX: U07.1 COVID-19 (principal); E78.00 Pure hypercholesterolemia, unspecified; K21.9 Gastro-esophageal reflux disease without esophagitis
CPT/HCPCS: 87426; 87804; 99213; G0463

== ENCOUNTER 2024-03-19 09:34 | Outpatient (CLI) | payer OTHER, SELFPAY ==
--- NOTE | ~2024-03-19 | MR_ITS ---
EXAMINATION: MR knee RT wo con DATE: 03/19/2024 11:09 INDICATION: anterior right knee pain s/p twisting inj x2mos, no ca TECHNIQUE: Magnetic resonance imaging (MRI) of the right knee was performed without intravenous contr ast. Sequences included axial PD-weighted FS FSE, coronal PD-weighted FSE and PD-weighted FS FSE, sag ittal PD-weighted FSE, and sagittal T2-weighted FS FSE. COMPARISON: X-ray right knee 02/29/2024, images only. FINDINGS: Medial compartment: Perimeniscal cyst at the posterior horn, likely oblique undersurface tear of the posterior horn. Apic al blunting of the meniscal body. Moderate diffuse full-thickness cartilage loss. Mild osteophytosis. Lateral compartment: Oblique undersurface tear of the meniscal body. Moderate diffuse cartilage thinning. Moderate osteoph ytosis. Patellofemoral compartment: Mild diffuse cartilage thinning. Mild osteophytosis. Ligaments and tendons: The ACL, PCL, MCL, and LCL are intact. Remaining flexor and extensor tendons are intact. Fluid: Moderate volume joint fluid. Moderate-sized Motta's cyst. Osseous/other: Abnormal signal in the central and lateral portions of the infrapatellar fat IMPRESSION: Likely oblique undersurface tear of the posterior horn, medial meniscus with an adjacent perimeniscal cyst. Oblique undersurface tear of the body of the lateral meniscus. Moderate joint effusion. Inflammatory changes in the infrapatellar fat pad. Moderate Motta's cyst. Moderate tricompartmental osteoarthritis. Reviewed, dictated and finalized at location K. E PROJECT MANAGER
== END 2024-03-19 09:35 | disposition home or self-care (01) ==
LOC: MICIMG 09:35
PROVIDERS: PCP Emergency Medicine; Visit Provider Orthopaedic Surgery
DX: M25.461 Effusion, right knee (principal); M71.21 Synovial cyst of popliteal space [Baker], right knee; M17.11 Unilateral primary osteoarthritis, right knee
CPT/HCPCS: 73721

== ENCOUNTER 2024-03-23 00:10 | Day surgery (SDC) | payer OTHER, SELFPAY ==
[2024-03-10 09:36] VITALS: BMI 29.7
--- OUTSIDE RECORDS SUMMARY | 2024-03-23 00:20 | XMS_ITS | Clinical Summary ---
Author Organization [facility] Address [address], [address] [address] Phone Care Team Providers Care Mixing Machine Tender Name Role Phone Bina Leach MD Unavailable Vincenzo Beach MD Primary Care Provider [phone] Medications polyethylene glycol (MIRALAX) Powder Mix the entire bottle with 64 oz of a clear liquid. Use as directed by the office for colonoscopy prep. 255 g 7 Active Social History Tobacco Use Types Packs/Day Years Used Date Smoking Tobacco: Never Assessed Comments Unknown Sex and Gender Information Value Date Recorded Sex Assigned at Not on file Legal Sex Female 8:56 PM CDT Gender Identity Not on file Sexual Orientation Not on file Plan of Treatment Health Maintenance Due Date Last Done Comments DEXA Bone Density 1955 Hepatitis C Virus (HCV) Screening 1955 TdaP Immunization 1955 Cologuard 07/22/2007 Immunochemical Fecal Occult Blood 07/22/2007 Mammogram 07/22/2007 Pneumococcal Immunization (5 0+ years) (1 of 1 - PCV) 07/22/2007 Zoster Immunization (1 of 2) 07/22/2007 Influenza Immunization (#1) 2023 SARS-COV-2 Immunization (1 - season) 2023 Colonoscopy 03/05/2027 03/05/2017 Colorectal Cancer Screening 03/05/2027 Respiratory Syncytial Virus (RSV) Immunization (Adult) (1 - 1-dose 75+ series) 2032 03/05/2017 Hepatitis B Immunization Aged Out No longer eligible based on patient's age to complete this topic Meningococcal Immunization (ACWY) Aged Out No longer eligible based on patient's age to complete this topic Rotavirus Immunization Aged Out No lo nger eligible based on patient's age to complete this topic Procedures Procedure Name Priority Date/Time Associated Diagnosis Comments COLONOSCOPY Routine 03/05/2017 from Last 3 Months or Most Recently Relevant to Health Maintenance Results * COLONOSCOPY (03/05/2017) Darian Mcfarlane DO PROCEDURE/MINOR SURGICAL ORDERA BLES Final Result from Last 3 Months or Most Recently Relevant to Health Maintenance Insurance Care Teams Mixing Machine Tender Relationship Specialty Start Date End Date Vincenzo Beach [place] [address] [place] [address] PCP - General Family Medicine 10/21/16 Bina Leach MD [address] [place] [id number] Obstetrics & Gynecology 10/21/16
[2024-03-23 10:54] VITALS: BP 149/77; PULSE 72; RESP 16; TEMP 35.8; O2SAT 100; BMI 28.8
[2024-03-23] MEDS: LACTATED RINGERS 1,000 ML 150 ML IV CONT (11:06)
--- NOTE | 2024-03-23 11:57 | WPDANESEPPF ---
Anes - Initial Pre Proc Eval Procedure: Operation Date: 03/23/24 13:00 Proposed Procedures p Colonoscopy - Simón Zurita MD Date/Time: 03/23/24 11:57 Surgeon: Simón Zurita MD Pre Op Diagnosis: hx of colon polyps, family hx of cancer Patient Data Age: 68 Gender: F Height: 1.6 m Weight: 73.8 kg Last Vital Signs Temp 96.5 F L 03/23/24 10:54 Pulse 72 03/23/24 10:54 Resp 16 03/23/24 10:54 BP 149/77 H 03/23/24 10:54 Pulse Ox 100 03/23/24 10:54 O2 Del Method Room Air 03/23/24 10:54 Allergies Allergy/AdvReac Type Severity Reaction Status Date / Time No Known Allergies Allergy Verified 03/23/24 10:52 Home Medications ?Medication ?Instructions ?Recorded ?Confirmed ?Type doxycycline hyclate 20 mg tablet See Rx Instructions .Route .COMPLEX 07/04/20 03/23/24 History ergocalciferol (vitamin D2) 1,250 See Rx Instructions .Route 11/13/23 03/23/24 Rx mcg (50,000 unit) capsule .COMPLEX #9 caps albuterol sulfate 90 mcg/actuation 2 puff inhalation QID PRN 03/08/24 03/23/24 Rx aerosol inhaler shortness of breath or wheezing #8.5 grams Patient hx anesthesia problems: none Family hx anesthesia problems: none Results Review: All pre-operative results and documents have been reviewed as part of the pre-operative evaluation. [facility] Past Medical History Medical History GERD (gastroesophageal reflux disease) Chest pain Chest pain Upper respiratory disease SOB (shortness of breath) Acute pain of left knee Aftercare following surgery Body mass index [BMI] 29.0-29.9, adult (06/05/17) Complex tear of lateral meniscus of left knee as current injury Effusion of knee joint, left Crushing injury of left knee, initial encounter Tear of medial meniscus of left knee High cholesterol Pneumonia Chicken pox Surgical History Surgical History Status post hysterectomy History of hysterectomy (~2006) 2007 History of knee surgery (~2018) Family History Family History Father Dementia Mother Carcinoma of colon Acute myocardial infarction Osteoporosis Other Diabetes mellitus Heart disease Hypertension Lung cancer Social History Social History Social History: Patient does not drink caffeine. Smoking status: Never smoker Alcohol intake: never Substance use: never Substance use type: does not use Do You Feel Safe in your Home?: Yes Lack of Transportation: No Lack of Food: Never True Current Housing: I Have Housing Concerned About Future Housing: No Difficulty Paying Gas/Electric Bills: No Difficulty Paying for Meds: No Currently Unemployed: No Education: Grade School Difficulty w/ Childcare or Family Care: No Living arrangements: alone Occupation/Education: occupation Additional occupation/education comments: [employer] Gender identity (if verbalized by the patient): Female Spiritual care concerns: No Anes - Eval Final PreProcedure Day of Procedure 03/23/24 11:57 Patient weight: normal Lungs: normal air movement Airway: Mallampati scale class II Neurological: alert and oriented Last oral intake: >/= 8 hours ASA classification: II Emergent: no Anesthetic plan: proceed Anesthesia type and monitoring: general GIVS and standard monitoring Results Review: All pre-operative results and documents have been reviewed as part of the pre-operative evaluation. Remote hx of asthma per chart, pt denies. Informed Consent: The patient's anesthetic plan and its attendant risks and benefits were discussed with the patient/family/POA. Questions were solicited and answers provided to the satisfaction of the patient/family/POA.
--- NOTE | 2024-03-23 12:03 | PM.IMHP ---
H&P: HPI History of Present Illness Date/Time: 03/23/24 12:03 Chief Complaint: Family history colon cancer Narrative: This patient has family history of colorectal cancer. her mother had colon cancer at age 57. Her last colonoscopy was more than 10 years ago. Review of Systems Review of Systems: All systems reviewed & are unremarkable except as noted in HPI and below PMFSH Past Medical History Medical History GERD (gastroesophageal reflux disease) Chest pain Chest pain Upper respiratory disease SOB (shortness of breath) Acute pain of left knee Aftercare following surgery Body mass index [BMI] 29.0-29.9, adult (06/05/17) Complex tear of lateral meniscus of left knee as current injury Effusion of knee joint, left Crushing injury of left knee, initial encounter Tear of medial meniscus of left knee High cholesterol Pneumonia Chicken pox Surgical History Surgical History Status post hysterectomy History of hysterectomy (~2006) 2006 History of knee surgery (~2017) Family History Family History Father Dementia Mother Carcinoma of colon Acute myocardial infarction Osteoporosis Other Diabetes mellitus Heart disease Hypertension Lung cancer Social History Social History Social History: Patient does not drink caffeine. Smoking status: Never smoker Alcohol intake: never Substance use: never Substance use type: does not use Do You Feel Safe in your Home?: Yes Lack of Transportation: No Lack of Food: Never True Current Housing: I Have Housing Concerned About Future Housing: No Difficulty Paying Gas/Electric Bills: No Difficulty Paying for Meds: No Currently Unemployed: No Education: Grade School Difficulty w/ Childcare or Family Care: No Living arrangements: alone Occupation/Education: occupation Additional occupation/education comments: [employer] Gender identity (if verbalized by the patient): Female Spiritual care concerns: No Meds Home Medications and Allergies Home Medications ?Medication ?Instructions ?Recorded ?Confirmed ?Type doxycycline hyclate 20 mg tablet See Rx Instructions .Route .COMPLEX 07/04/20 03/23/24 History ergocalciferol (vitamin D2) 1,250 See Rx Instructions .Route 11/13/23 03/23/24 Rx mcg (50,000 unit) capsule .COMPLEX #9 caps albuterol sulfate 90 mcg/actuation 2 puff inhalation QID PRN 03/08/24 03/23/24 Rx aerosol inhaler shortness of breath or wheezing #8.5 grams Allergies Allergy/AdvReac Type Severity Reaction Status Date / Time No Known Allergies Allergy Verified 03/23/24 10:52 Vital Signs Vital Signs - 24 hr 03/23/24 10:54 Temperature 96.5 F L Pulse Rate 72 Respiratory Rate 16 Blood Pressure 149/77 H Pulse Oximetry 100 Oxygen Delivery Room Air Exam Const: General: cooperative and healthy appearing Resp: Effort & Inspection: normal respiratory effort and able to speak in complete sentences Auscultation: clear to auscultation bilaterally Cardio: Rate: regular rate Rhythm: regular rhythm GI: Inspection: normal to inspection GI Palp: No No hepatosplenomegaly present Auscultation: normal bowel sounds Rectal Exam: deferred Skin: General skin exam: normal color Psych: Appearance: grossly normal Mental Status: mental status grossly normal Assessment and Plan Assessment and plan (1) Family history of colon cancer: Code(s): Z80.0 - Family history of malignant neoplasm of digestive organs Status: Acute Assessment and Plan: The patient is deemed a good candidate for the procedure. Consent signed. Will proceed.
[2024-03-23] MEDS: SIMETHICONE ORAL SUSPENSION 20 MG/0.3 ML 30 ML BOTTLE 0.6 ML IRRIGATION (12:14)
[2024-03-23 12:20] VITALS: BP 111/52; PULSE 75; RESP 20; O2SAT 100
[2024-03-23 12:30] VITALS: BP 120/59; PULSE 70; RESP 20; O2SAT 100
[2024-03-23 12:40] VITALS: BP 130/70; PULSE 68; RESP 18; O2SAT 100
== END 2024-03-23 12:57 | disposition home or self-care (01) ==
PROVIDERS: PCP Emergency Medicine; Referring Provider Obstetrics & Gynecology Gynecology; Visit Provider Internal Medicine Gastroenterology
PROC: 0DJD8ZZ Inspection of Lower Intestinal Tract, Via Natural or Artificial Opening Endoscopic (ICD-10-PCS; CPT 45378; principal; 2024-03-23 13:00)
DX: Z12.11 Encounter for screening for malignant neoplasm of colon (principal); K64.8 Other hemorrhoids; Z86.0100 Personal history of colon polyps, unspecified; Z80.0 Family history of malignant neoplasm of digestive organs
CPT/HCPCS: 45378; J2704; J7120

== ENCOUNTER 2024-05-04 00:15 | Day surgery (SDC) | payer OTHER, SELFPAY ==
[2024-04-20 15:32] VITALS: BMI 29.2
--- NOTE | 2024-04-20 15:50 | PC.NURSE ---
Report to the Outpatient Waiting Room, entrance under the green pavilion located off [address] [facility], at time ___11:30AM____ on date ___05/04/24____. Planned Procedure Time: __1:30PM .? Time changes happen often and if your time is changed the preop area will call you the afternoon before. - You and your visitor will be asked to self-screen and do not enter if you have any COVID symptoms. Please call surgeon if you need to reschedule. - A mask is optional within the hospital at this time. Patients may have clear liquids (water, carbonated beverages, clear teas, apple juice) until 3 hours prior to surgery (10:30AM) with a maximum of 20 ounces. - No food from midnight until time of surgery and no smoking, or chewing tobacco (or any form of nicotine). No chewing gum, candy or mints. Take only the following medications with a SIP of water on the morning of surgery: ___DOXYCYCLINE. MAY USE ALBUTEROL INHALER NEEDED. DO NOT STOP ANY OF YOUR OTHER PRESCRIPTION MEDICATIONS PRIOR TO SURGERY EXCEPT THE FOLLOWING Hold all vitamins and supplements for 3 days per anesthesiologist.-LAST DOSE 04/30/24. HOLD IBUPROFEN PER DR ANTON. Please no make-up, nail sami, hairspray, perfume, deodorant, or body powder the day of surgery.? No jewelry (including any body piercings) or valuables the day of surgery, leave them at home.? Please take a shower or bath the night before, or the morning of, surgery with an antibacterial soap.? Wear comfortable, loose fitting clothing.? - Jewelry must be removed prior to entering the operating room.? Rings and piercings that are not removed may be cut off. - The hospital will not accept responsibility for valuables.? - Please leave all valuables, including medications, at home the day of surgery. If you are going home after surgery, a licensed utility worker driver must drive you home.? - NO public transportation without another adult if you receive anesthesia. - We recommend that an adult stay with you for 24 hours following discharge. - We also recommend that you do not drive, make important decision, drink alcoholic beverages, or take any drugs that were not prescribed by your health care provider for at least 24 hours after your discharge time. Follow any additional instructions given to you from your surgeon. Telephone instructions given to ___PATIENT and asked if any additional questions and then verbalized understanding. Patient advised to call surgeon office or pre surgery nurse liaison [phone] if any additional questions.
[2024-05-04] VITALS (14 sets, daily range): BP systolic 104–184; BP diastolic 54–92; PULSE 50–103; RESP 10–20; TEMP 36.1; O2SAT 95–100; BMI 29.5
--- OUTSIDE RECORDS SUMMARY | 2024-05-04 00:17 | XMS_ITS | Clinical Summary ---
Author Organization [facility] Address [address], [address] [address] Phone Care Team Providers Care New Media Strategist Name Role Phone Bina Leach MD Unavailable [phone] Vincenzo Beach MD Primary Care Provider [phone] Medications polyethylene glycol (MIRALAX) Powder Mix the [...] Relevant to Health Maintenance Insurance Care Teams New Media Strategist Relationship Specialty Start Date End Date Vincenzo [place] [address] [place] [address] PCP - General Family Medicine 10/21/16 Bina Leach MD [address] [place] [id number] Obstetrics & Gynecology 10/21/16
--- NOTE | 2024-05-04 07:16 | WPDHPUPDATE1 ---
History and Physical Update Update Date/Time: 05/04/24 07:16 History and Physical has been reviewed, including an updated exam of the patient. There are NO changes in the patient's condition. Risks, benefits, and alternatives have been discussed and questions answered. Patient agrees to proceed with procedure.
[2024-05-04] MEDS: CELECOXIB 200 MG CAPSULE PO (11:45)
[2024-05-04] MEDS: ACETAMINOPHEN 500 MG TABLET 1000 MG PO (11:45)
[2024-05-04] MEDS: LACTATED RINGERS 1,000 ML 30 ML IV CONT ×2 (12:00→15:08)
--- NOTE | 2024-05-04 13:23 | WPDANESEPPF ---
Anes - Initial Pre Proc Eval Procedure: Operation Date: 05/04/24 13:30 Proposed Procedures p Right Knee Arthroscopy, Proceed As Indicated - Walter Wilson MD Date/Time: 05/04/24 13:23 Surgeon: Walter Wilson MD Pre Op Diagnosis: right knee medial meniscal tear Patient Data Age: 68 Gender: F Height: 1.6 m Weight: 75.5 kg Last Vital Signs Temp 36.1 C L 05/04/24 11:38 Pulse 67 05/04/24 11:38 Resp 14 05/04/24 11:38 BP 143/77 H 05/04/24 11:38 Pulse Ox 100 05/04/24 11:38 O2 Del Method Room Air 05/04/24 11:38 Allergies Allergy/AdvReac Type Severity Reaction Status Date / Time No Known Allergies Allergy Verified 05/04/24 11:37 Home Medications ?Medication ?Instructions ?Recorded ?Confirmed ?Type doxycycline hyclate 20 mg tablet 20 mg PO BID 07/04/20 05/04/24 History ergocalciferol (vitamin D2) 1,250 See Rx Instructions .Route 11/13/23 04/20/24 Rx mcg (50,000 unit) capsule .COMPLEX #9 caps albuterol sulfate 90 mcg/actuation 2 puff inhalation QID PRN 03/08/24 04/20/24 Rx aerosol inhaler shortness of breath or wheezing #8.5 grams chlorhexidine gluconate 4 % 1 applic topical ONCE #237 mL 04/20/24 05/04/24 Rx topical liquid (Hibiclens) ibuprofen 200 mg tablet (Advil) 200 mg PO Q6H PRN pain 04/20/24 05/04/24 History Patient hx anesthesia problems: none Family hx anesthesia problems: none Results Review: All pre-operative results and documents have been reviewed as part of the pre-operative evaluation. [facility] Past Medical History Medical History COVID COVID-19 Right knee meniscal tear GERD (gastroesophageal reflux disease) Chest pain Chest pain Upper respiratory disease SOB (shortness of breath) Acute pain of left knee Aftercare following surgery Body mass index [BMI] 29.0-29.9, adult (06/05/17) Complex tear of lateral meniscus of left knee as current injury Effusion of knee joint, left Crushing injury of left knee, initial encounter Tear of medial meniscus of left knee High cholesterol Pneumonia Chicken pox Surgical History Surgical History Status post hysterectomy History of hysterectomy (~2007) 2007 History of knee surgery (~2018) Family History Family History Father Dementia Mother Carcinoma of colon Acute myocardial infarction Osteoporosis Other Diabetes mellitus Heart disease Hypertension Lung cancer Social History Social History Social History: Patient does not drink caffeine. Smoking status: Never smoker Alcohol intake: never Substance use: never Substance use type: does not use Do You Feel Safe in your Home?: Yes Lack of Transportation: No Lack of Food: Never True Current Housing: I Have Housing Concerned About Future Housing: No Difficulty Paying Gas/Electric Bills: No Difficulty Paying for Meds: No Currently Unemployed: No Education: Grade School Difficulty w/ Childcare or Family Care: No Living arrangements: alone Occupation/Education: occupation Additional occupation/education comments: [employer] Gender identity (if verbalized by the patient): Female Spiritual care concerns: No Anes - Eval Final PreProcedure Day of Procedure 05/04/24 13:23 Patient weight: overweight Heart: regular rate and rhythm Lungs: clear to auscultation Airway: Mallampati scale class II Neurological: alert and oriented Last oral intake: >/= 8 hours ASA classification: II Emergent: no Anesthetic plan: proceed Anesthesia type and monitoring: general LMA and standard monitoring Results Review: All pre-operative results and documents have been reviewed as part of the pre-operative evaluation. Informed Consent: The patient's anesthetic plan and its attendant risks and benefits were discussed with the patient/family/POA. Questions were solicited and answers provided to the satisfaction of the patient/family/POA.
--- NOTE | 2024-05-04 13:30 | WPDANESEPPF ---
Anes - Initial Pre Proc Eval Procedure: Operation Date: 05/04/24 13:30 Proposed Procedures p Right Knee Arthroscopy, Proceed As Indicated - Walter Wilson MD Date/Time: 05/04/24 13:30 Surgeon: Walter Wilson MD Pre Op Diagnosis: right knee medial meniscal tear Patient Data Age: 68 Gender: F Height: 1.6 m Weight: 75.5 kg Last Vital Signs Temp 97 F L 05/04/24 11:38 Pulse 67 05/04/24 11:38 Resp 14 05/04/24 11:38 BP 143/77 H 05/04/24 11:38 Pulse Ox 100 05/04/24 11:38 O2 Del Method Room Air 05/04/24 11:38 Allergies Allergy/AdvReac Type Severity Reaction Status Date / Time No Known Allergies Allergy Verified 05/04/24 11:37 Home Medications ?Medication ?Instructions ?Recorded ?Confirmed ?Type doxycycline hyclate 20 mg tablet 20 mg PO BID 07/04/20 05/04/24 History ergocalciferol (vitamin D2) 1,250 See Rx Instructions .Route 11/13/23 04/20/24 Rx mcg (50,000 unit) capsule .COMPLEX #9 caps albuterol sulfate 90 mcg/actuation 2 puff inhalation QID PRN 03/08/24 04/20/24 Rx aerosol inhaler shortness of breath or wheezing #8.5 grams chlorhexidine gluconate 4 % 1 applic topical ONCE #237 mL 04/20/24 05/04/24 Rx topical liquid (Hibiclens) ibuprofen 200 mg tablet (Advil) 200 mg PO Q6H PRN pain 04/20/24 05/04/24 History Patient hx anesthesia problems: none Family hx anesthesia problems: none Results Review: All pre-operative results and documents have been reviewed as part of the pre-operative evaluation. [facility] Past Medical History Medical History COVID COVID-19 Right knee meniscal tear GERD (gastroesophageal reflux disease) Chest pain Chest pain Upper respiratory disease SOB (shortness of breath) Acute pain of left knee Aftercare following surgery Body mass index [BMI] 29.0-29.9, adult (06/05/17) Complex tear of lateral meniscus of left knee as current injury Effusion of knee joint, left Crushing injury of left knee, initial encounter Tear of medial meniscus of left knee High cholesterol Pneumonia Chicken pox Surgical History Surgical History Status post hysterectomy History of hysterectomy (~2007) 2007 History of knee surgery (~2018) Family History Family History Father Dementia Mother Carcinoma of colon Acute myocardial infarction Osteoporosis Other Diabetes mellitus Heart disease Hypertension Lung cancer Social History Social History Social History: Patient does not drink caffeine. Smoking status: Never smoker Alcohol intake: never Substance use: never Substance use type: does not use Do You Feel Safe in your Home?: Yes Lack of Transportation: No Lack of Food: Never True Current Housing: I Have Housing Concerned About Future Housing: No Difficulty Paying Gas/Electric Bills: No Difficulty Paying for Meds: No Currently Unemployed: No Education: Grade School Difficulty w/ Childcare or Family Care: No Living arrangements: alone Occupation/Education: occupation Additional occupation/education comments: [employer] Gender identity (if verbalized by the patient): Female Spiritual care concerns: No Anes - Eval Final PreProcedure Day of Procedure 05/04/24 13:30 Patient weight: overweight Lungs: normal air movement Airway: Mallampati scale class II Neurological: alert and oriented Last oral intake: >/= 8 hours ASA classification: II Emergent: no Anesthetic plan: proceed Anesthesia type and monitoring: general GIVS and standard monitoring Results Review: All pre-operative results and documents have been reviewed as part of the pre-operative evaluation. PAMELA on CPAP. Informed Consent: The patient's anesthetic plan and its attendant risks and benefits were discussed with the patient/family/POA. Questions were solicited and answers provided to the satisfaction of the patient/family/POA.
[2024-05-04] MEDS: ceFAZolin 2 GM/D5W 50 ML 2 GM/50 ML BAG IVPB (13:41)
[2024-05-04] MEDS: BUPivacaine HCL 0.5% PF 30 ML VIAL INFILTRATE (14:09)
--- NOTE | 2024-05-04 15:16 | W.PM.PROC2 ---
Procedure Note - Detailed Date of Procedure 05/04/24 Pre-op Diagnosis right knee medial meniscal tear Post-op Diagnosis Same Procedure Performed RIGHT KNEE SCOPE Surgeon Walter Wilson MD Anesthesia General Description of Procedure PATIENT WAS TAKEN TO THE OPERATING ROOM SUITE. ANESTHESIA WAS INDUCED. THE RIGHT LEG WAS PREPPED AND DRAPED STERILE. TROCARS WERE PLACED IN TO THE KNEE JOINT IN THE USUAL FASHION. THE CAMERA WAS INTRODUCED. THERE WAS MODERATE CHONDROMALACIA TO THE PATELLA FEMORAL JOINT. THERE WAS A LOT OF SYNOVITIS IN ALL COMPARTMENTS. THE MEDIAL COMPARTMENT SHOWED GRADE 2 CHONDROMALACIA TO THE MEDIAL FEMORAL CONDYLE. CHONDROPLASTY WAS PREFORMED. THERE WAS A COMPLEX MEDIUM SIZED MEDIAL MENISCUS TEAR AT THE POSTERIOR HORN. THE TEAR WAS RESECTED TO A SMOOTH BASE. THE ACL WAS INTACT. THERE WAS A LARGE TEAR AT THE LATERAL MENISCUS AT THE MID SUBSTANCE AND EXTENDED TO ANTERIOR HORN. THE TEAR WAS RESECTED. THE LATERAL COMPARTMENT HAD GRADE 3 CHONDROMALACIA AT THE LATERAL FEMORAL CONDYLE. A SYNOVECTOMY WAS PREFORMED. THE PATELLO FEMORAL JOINT UNDERWENT CHONDROPLASTY OVER THE PATELLA. THERE WAS GRADE 3 CHONDROMALACIA IN A SMALL SECTION OF THE OF THE PATELLA AND A LARGER AREA OF THE TROCHLEA. SYNOVECTOMY WAS PREFORMED IN THE SUPERIOR MEDIAL COMPARTMENT. THE WOUNDS WERE APPROXIMATED WITH 4.0 NYLON. STERILE DRESSING WAS APPLIED. PATIENT WAS EXTUBATED. Estimated Blood Loss 5 Complications No immediate complications Condition Stable Disposition PACU
[2024-05-04] MEDS: fentaNYL CITRATE INJ (*CRX) 100 MCG/2 ML VIAL 25 MCG IV PUSH ×4 (15:39→15:53)
[2024-05-04] MEDS: hydrALAZINE HCL 20 MG/ML VIAL 5 MG IV PUSH ×2 (16:08→16:32)
[2024-05-04] MEDS: ONDANSETRON INJ 4 MG/2 ML VIAL IV PUSH (17:01)
[2024-05-04] MEDS: oxyCODONE HCL (*CRX) 5 MG TAB IR PO (17:37)
== END 2024-05-04 18:07 | disposition home or self-care (01) ==
PROVIDERS: PCP Emergency Medicine; Visit Provider Orthopaedic Surgery
PROC: (CPT 29870; principal; 2024-05-04 13:30)
DX: M23.321 Other meniscus derangements, posterior horn of medial meniscus, right knee (principal); M23.361 Other meniscus derangements, other lateral meniscus, right knee; M94.261 Chondromalacia, right knee; M65.861 Other synovitis and tenosynovitis, right lower leg
CPT/HCPCS: 29880; A9270; J0360; J0690; J1100; J2405; J2704; J3010; J7120

== ENCOUNTER 2024-06-21 12:30 | Outpatient (RCR) | payer OTHER, SELFPAY ==
--- NOTE | 2024-05-24 09:36 | OPREHPOC ---
Outpatient Therapy Plan of Care This is a Multidisciplinary Plan of Care that may contain components documented by all disciplines (PT, OT, and ST.) PT Problem 1 PT Problem #1 Knowledge Deficit PT Goal 1 Goal / Goal Update [place] with HEP Target Visit 4 PT Goal 2 Goal / Goal Update Report no pain greater than 2/10 for 2 consecutive weeks Target Visit 8 PT Problem 2 PT Problem #2 Impaired Range of Motion PT Goal 1 Goal / Goal Update 1. Achieve terminal right knee ROM for even gait stride 2. Improve right knee flexion ROM to 125 degrees to improve functional- bend and ADL performance Target Visit 8 PT Problem 3 PT Problem #3 Edema PT Goal 1 Goal / Goal Update Demonstrate 1cm+ reduction in joint line swelling indicating soft tissue healing Target Visit 8 PT Problem 4 PT Problem #4 Impaired Sensation PT Goal 1 Goal / Goal Update Improve gross R knee strength to 5/5 to improve stability for ADL performance and ambulation Target Visit 8
--- NOTE | 2024-05-24 09:36 | PTOPEVAL1 ---
Assessment and note entered by Gab Michele, PT Evaluation Information Assessment Status Evaluation Diagnosis Complex tear of right knee meniscus ICD-10 Condition Codes (PT) Pain in right knee M25.561,Pain in left knee M25. 562 Onset 05/04/24 Subjective Information Reports that she swelling and stiffness right now is her biggest problem. She has had a couple of episodes where she felt it may give out on her. She has not currently been given any exercises to work on. She reports that she has been doing some walking when tolerated but she does not have the endurance that she feels she needs. Has been icing knee for pain relief. She has been taking pain medication. Reported Pain Level Pain Score 5: Self Report Assessment PT Clinical Summary Patient presents with signs and symptoms consistent with post operative meniscectomy. At this time, knee ROM appears to be greatest deficit and exercises to address have been initiated. Patient will benefit form skilled therapy to restore ROM and functional strength. Patient appears apprehensive this date but encourageable. Plan of Care Interventions Electrical Stimulation,Gait Training,Hot Pack/Cold Pack,Manual Therapy,Neuro Re-education, Therapeutic Activities,Therapeutic Exercise PT Services Indicated Yes Treatment Frequency and 2x/week for 8 visits Duration These treatments will address the objective and functional deficits as defined above. The patient will be advanced safely and appropriately in order for the patient to progress towards his/her prior level of function. Additional exercises will be introduced and as well as a comprehensive home exercise program upon discharge, if needed, ?to ensure carryover of functional gains achieved in the clinic. This treatment plan has been reviewed and agreement upon by the patient.
--- NOTE | 2024-06-21 13:12 | OPREHPOC ---
Outpatient Therapy Plan of Care This is a Multidisciplinary Plan of Care that may contain components documented by all disciplines (PT, OT, and ST.) PT Problem 1 PT Problem #1 Knowledge Deficit PT Goal 1 Goal / Goal Update [place] with HEP Target Visit 4 Progress Met PT Goal 2 Goal / Goal Update Report no pain greater than 2/10 for 2 consecutive weeks Target Visit 8 Progress Met PT Problem 2 PT Problem #2 Impaired Range of Motion PT Goal 1 Goal / Goal Update 1. Achieve terminal right knee ROM for even gait stride 2. Improve right knee flexion ROM to 125 degrees to improve functional- bend and ADL performance Target Visit 8 Progress Met PT Problem 3 PT Problem #3 Edema PT Goal 1 Goal / Goal Update Demonstrate 1cm+ reduction in joint line swelling indicating soft tissue healing Target Visit 8 Progress Met PT Problem 4 PT Problem #4 Impaired Sensation PT Goal 1 Goal / Goal Update Improve gross R knee strength to 5/5 to improve stability for ADL performance and ambulation Target Visit 8 Progress Met
--- NOTE | 2024-06-21 13:12 | PTOPDC ---
Assessment and note entered by Gab Michele, PT Evaluation Information Assessment Status Discharge Diagnosis Complex tear of right knee meniscus ICD-10 Condition Codes (PT) Pain in right knee M25.561,Pain in left knee M25. 562 Onset 05/04/24 Subjective Information Patient reports that overall she feels he is doing very well. Right now she is scheduled to return to work on 06/30 and feels that she will be ready to do so. Her only reservation is her continued stretching and bending on her knee with deep activity. Feels that her walking is much better. Reported Pain Level Pain Score 1: Self Report Assessment PT Clinical Summary Patient has meta ll goals for therapy at this time . She achieved full functional knee ROM and strength and was able to demonstrate proper lifting technique. patient will be discharged to [facility] at this time. No concerns at this point from my standpoint on discharge and return to work related duty. Plan of Care PT Services Indicated Yes
== END 2024-06-21 14:39 | disposition home or self-care (01) ==
LOC: ANHGOSHPT 12:30
PROVIDERS: PCP Emergency Medicine; Visit Provider Orthopaedic Surgery
DX: S83.231D Complex tear of medial meniscus, current injury, right knee, subsequent encounter (principal); S83.242A Other tear of medial meniscus, current injury, left knee, initial encounter
CPT/HCPCS: 97110; 97112; 97161; 97530

== ENCOUNTER 2024-11-22 10:36 | Outpatient (CLI) | payer OTHER, SELFPAY ==
--- NOTE | ~2024-11-22 | MM_ITS ---
EXAMINATION: MM screening yumi BI w janessa HISTORY: Screening TECHNIQUE: Craniocaudal and mediolateral oblique 3-D tomosynthesis images were obtained and synthetic 2-D images were generated. CAD analysis was submitted and interpreted. COMPARISON: 02/19/2021 BREAST PARENCHYMAL COMPOSITION: The breasts are heterogeneously dense, which may obscure small masses. FINDINGS: There is no evidence of suspicious mass, calcification, or architectural distortion to suggest malignancy. There has been no suspicious interval change. IMPRESSION: 1. No mammographic evidence of malignancy. Recommend routine screening mammography in one year. BI-RADS Category 2: Benign finding(s) Reviewed, dictated and finalized at location Q. IMPRESSION: 1. No mammographic evidence of malignancy. Recommend routine screening mammogra phy in one year. BI-RADS Category 2: Benign finding(s)
== END 2024-11-22 10:37 | disposition home or self-care (01) ==
LOC: MICIMG 10:37
PROVIDERS: PCP Obstetrics & Gynecology Gynecology; Visit Provider Emergency Medicine
DX: Z12.31 Encounter for screening mammogram for malignant neoplasm of breast (principal)
CPT/HCPCS: 77063; 77067